=== PATIENT | male | born 1945 | race Caucasian/White ===

== ENCOUNTER 2024-11-04 12:00 | Emergency (ER) | payer OTHER, MEDICARE, SELFPAY ==
[2024-11-04 12:16] VITALS: BP 110/70; PULSE 87; RESP 16; TEMP 36.7; O2SAT 92; BMI 32.3
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
[2024-11-04 14:13] VITALS: BP 106/71; PULSE 91; RESP 16; O2SAT 91
== END 2024-11-04 14:19 | disposition home or self-care (01) ==
PROVIDERS: Emergency Provider Emergency Medicine
DX: Z04.1 Encounter for examination and observation following transport accident (principal); V89.2XXA Person injured in unspecified motor-vehicle accident, traffic, initial encounter
CPT/HCPCS: 99281